=== PATIENT | female | born 1955 | race Caucasian/White ===

== ENCOUNTER 2022-07-21 10:39 | Outpatient (CLI) | payer MEDICARE, OTHER ==
[2022-07-25] MEDS ORDERED: CHOL200012 PO (10:08)
[2022-07-25] MEDS ORDERED: ASPI-611 PO (10:08)
[2022-07-25] MEDS ORDERED: ZINC (10:08)
[2022-07-25] MEDS ORDERED: VITA400T10 PO (10:08)
[2022-07-25] MEDS ORDERED: [UNRECOGNIZED DRUG - OTHER] (10:08)
[2022-07-25] MEDS ORDERED: BIOT25008 PO (10:08)
[2022-07-25] MEDS ORDERED: DEXL60CA3 PO (10:08)
[2022-07-25] MEDS ORDERED: MULT-1219 PO (10:08)
[2022-07-25] MEDS ORDERED: ROSU10TA28 (10:08)
[2022-07-25] MEDS ORDERED: BACL10TA PO (10:08)
[2022-07-25] MEDS ORDERED: MEGA RED (10:08)
[2022-07-25] MEDS ORDERED: LEVO100T9 (10:08)
[2022-07-25] MEDS ORDERED: SEMA2PEN SQ (10:08)
[2022-07-25] MEDS ORDERED: LACT1CAP65 PO (10:08)
== END 2022-07-21 23:59 | disposition home or self-care (01) ==
LOC: RAD 10:39
PROVIDERS: ATTEND Surgery
DX: Z01.818 Encounter for other preprocedural examination (principal); K21.9 Gastro-esophageal reflux disease without esophagitis; K44.9 Diaphragmatic hernia without obstruction or gangrene
CPT/HCPCS: 74220

== ENCOUNTER 2022-08-02 05:27 | Observation (INO) | payer MEDICARE, OTHER ==
[2022-07-25 10:14] LABS: BASOPHILS % (AUTO) 0.7 % (0-1); EOSINOPHILS # (AUTO) 0.1 X10'3 (0-0.9); EOSINOPHILS % (AUTO) 2.1 % (0-6); LYMPHOCYTES # (AUTO) 1.6 X10'3 (1.1-4.8); LYMPHOCYTES % (AUTO) 31.7 % (21-51); MEAN CORPUSCULAR HEMOGLOBIN 29.8 PG (27.0-31.0); MEAN CORPUSCULAR HGB CONC 34.1 g/dL (33.0-36.5); MEAN CORPUSCULAR VOLUME 87.5 FL (78-98); MEAN PLATELET VOLUME 7.1 FL (7.4-10.4); MONOCYTES # (AUTO) 0.5 X10'3 (0-0.9); NEUTROPHILS # (AUTO) 2.9 X10'3 (1.8-7.7); NEUTROPHILS % (AUTO) 56.5 % (42-75); PRE OP HEMATOCRIT 42.7 % (35.0-45.0); PRE OP HEMOGLOBIN 14.5 g/dL (12.0-16.0); PRE OP PLATELET COUNT 221 X10'3 (140-440); RED BLOOD COUNT 4.87 X10'6 (4.20-5.60); RED CELL DISTRIBUTION WIDTH 13.4 % (11.5-14.5)
[2022-07-25 10:40] LABS: ALBUMIN 3.7 G/DL (3.4-5.0); BLOOD UREA NITROGEN 17 MG/DL (7-18); BUN/CREATININE RATIO 27.9 (10.0-20.0); CALCIUM 8.4 MG/DL (8.5-10.1); CHLORIDE 107 MMOL/L (99-107); CREATININE 0.61 MG/DL (0.40-0.90); PRE OP ANION GAP 9 (8-16); PRE OP BILIRUB, TOTAL 0.6 MG/DL (0.0-1.0); PRE OP GLUCOSE 95 MG/DL (70-104); PRE OP POTASSIUM 3.8 MMOL/L (3.4-5.1); PRE OP SODIUM 142 MMOL/L (135-145); TOTAL CARBON DIOXIDE 26.5 MMOL/L (24-32); TOTAL PROTEIN 6.9 G/DL (6.4-8.2); eGFR > 90 ML/MIN
[2022-07-25 10:41] LABS: ALBUMIN/GLOBULIN RATIO 1.2 (1.1-1.5); ALKALINE PHOSPHATASE 63 IU/L (46-116); PRE OP ALT 32 U/L (30-65); PRE OP AST 32 U/L (10-37)
[~2022-08-02] VITALS: Ht 167.6 cm; Wt 73.5 kg
[2022-08-02] VITALS (38 sets, daily range): BP systolic 91–131; BP diastolic 54–84
[~2022-08-02 05:27] MED LIST: ASPI-611 PO; BACL10TA PO; BIOT25008 PO; CHOL200012 PO; DEXL60CA3 PO; LACT1CAP65 PO; LEVO100T9; MEGA RED; MULT-1219 PO; ROSU10TA28; SEMA2PEN SQ; VITA400T10 PO; ZINC; [UNRECOGNIZED DRUG - OTHER]; ringers solution, lacted 1,000 ML IV SCH
[2022-08-02] MEDS ORDERED: famotidine 20mg tablet PO ONE (05:30)
[2022-08-02] MEDS ORDERED: cefazolin 2gm/D5W 100mL 100 ML IV ONE (05:30)
[2022-08-02] MEDS ORDERED: LIDOcaine 1% 30ml preserv. free vial ONE (06:46)
[2022-08-02] MEDS ORDERED: BUPIVAcaine/PF 2.5 mg/ml (0.25%) 30ml vial ONE (06:46)
[2022-08-02] MEDS ORDERED: fentaNYL/PF 50MCG/1 ML 2ML syringe ONE ×2 (07:23→08:18)
[2022-08-02] MEDS ORDERED: midazolam 1 mg/ML 2ml injection ONE (07:24)
[2022-08-02] MEDS ORDERED: rocuronium 10mg/ml inj IV ONE (07:25)
[2022-08-02] MEDS ORDERED: propofol inj 20 ML IV ONE (07:25)
[2022-08-02] MEDS ORDERED: morphine 2 MG/ML inj. syringe IV PRN (07:30)
[2022-08-02] MEDS ORDERED: ringers solution, lacted 1,000 ML IV SCH (07:30)
[2022-08-02] MEDS ORDERED: HYDROmorphone/PF 0.2 MG/ML SYRINGE IV PRN (07:30)
[2022-08-02] MEDS ORDERED: ondansetron/PF 4mg/2ml inj IV PRN ×2 (07:30→09:25)
[2022-08-02] MEDS ORDERED: LIDOcaine 1% 30ml preserv. free vial IJ ONE (07:55)
[2022-08-02] MEDS ORDERED: BUPIVAcaine/PF 2.5mg/ml (0.25%) 10ml vial IJ ONE (07:56)
[2022-08-02] MEDS ORDERED: acetaminophen 1,000mg/100ml IV 100 ML IV ONE (08:06)
[2022-08-02] MEDS ORDERED: ondansetron/PF 4mg/2ml inj ONE (08:06)
[2022-08-02] MEDS ORDERED: dexamethasone sod phosphate 4mg/ml inj. ONE (08:06)
[2022-08-02] MEDS ORDERED: LIDOcaine 2% (20mg/ml) 5ml vial ONE (08:06)
[2022-08-02] MEDS ORDERED: naloxone 0.4 mg/ml inj IV PRN (09:25)
[2022-08-02] MEDS ORDERED: HYDROmorphone inj. 0.5 MG/0.5 ML DISP.SYRIN IV PRN (09:25)
--- NOTE | 2022-08-02 09:27 | NUR ---
Received from OR via [facility], accompanied by Anesthesiologist DR. CERON and report given by Anesthesiolgist. LEFT FOREARM 20G PIV WITH LR RUNNING ORDERED. VSS. NORMOTHERMIC. DENIES PAIN. AKHTAR. RASPY VOICE POST ESOPHAGEAL SCOPING. MASK 7L.
[2022-08-02] MEDS ORDERED: baclofen 10mg tablet PO PRN (09:30)
[2022-08-02] MEDS: morphine 4 MG/ML inj SYRINge IV PRN ×2 (10:55→11:04)
[2022-08-02] MEDS: HYDROmorphone/PF 0.2 MG/ML SYRINGE IV PRN ×2 (11:13→11:32)
[2022-08-02] MEDS: oxyCODONE/APAP 5-325mg tablet PO PRN ×2 (13:44→17:50)
--- NOTE | 2022-08-02 14:00 | NUR ---
PATIENT TRANSFERRED TO PAS UNIT TO AWAIT A ROOM ON SURGICAL FLOOR. REPORT GIVEN TO DECLAN SUGGS SENT WITH PATIENT ALONG WITH CHART.
--- NOTE | 2022-08-02 14:15 | NUR ---
ASSUMED CARE OF PT. PT A/O X 4, DENIES PAIN. STATES SHE FEELS TIRED. VSS, SEE PACU VS. Addendum: 08/02/22 at 1423 by Daniela Ramsey RN Amended: Links added.
--- NOTE | 2022-08-02 16:36 | NUR ---
PT UNABLE TO VOID AFTER 2 ATTEMPTS. BLADDER SCAN WAS PERFORMED AND RESULTED IN 407ML IN BLADDER. DR CUENCA INFORMED AND ORDER RECEIVED TO PLACE NIX CATH OVER NIGHT AND TO D/C IN AM. 16F NIX CATH PLACED USING STERILE PRECAUTIONS. PT TOLERATED WELL AND 500 ML DRAINED INTO BAG. PT WAS THEN TRANSFERRED TO [address] ON SURGICAL FLOOR AND REPORT GIVEN TO MAXIM PETERSON. RN PRESENT AT BEDSIDE. ALL QUESTIONS ANSWERED. BLL, RAIL UP X2. AT BEDSIDE.
--- NOTE | 2022-08-02 18:10 | NUR ---
Patient in room [facility]. I have received report from NICHOLAS Beasley and had the opportunity to ask questions and assume patient care.
--- NOTE | 2022-08-02 18:34 | NUR ---
Report to Brittani PETERSON
[2022-08-02] MEDS: heparin, porcine 5000 units/ml vial SQ SCH (19:58)
[2022-08-03 02:00] VITALS: BP 94/64
[2022-08-03] MEDS: oxyCODONE/APAP 5-325mg tablet PO PRN ×3 (02:19→13:04)
--- NOTE | 2022-08-03 05:53 | NUR ---
FC discontinued at 0545. tolerated procedure well. panties and pads given with education to notify nurses.
[2022-08-03 06:00] VITALS: BP 95/60
[2022-08-03 06:09] LABS: ALBUMIN 3.2 G/DL (3.4-5.0); ANION GAP 7 (8-16); BLOOD UREA NITROGEN 12 MG/DL (7-18); BUN/CREATININE RATIO 17.1 (10.0-20.0); CALCIUM 8.6 MG/DL (8.5-10.1); CHLORIDE 107 MMOL/L (99-107); GLUCOSE 98 MG/DL (70-104); POTASSIUM 4.2 MMOL/L (3.5-5.1); SODIUM 140 MMOL/L (135-145); TOTAL CARBON DIOXIDE 26.5 MMOL/L (24-32); eGFR 83 ML/MIN
--- NOTE | 2022-08-03 06:32 | NUR ---
Problems reprioritized. Patient report given, questions answered & plan of care reviewed with NICHOLAS Herring.
[2022-08-03] MEDS: heparin, porcine 5000 units/ml vial SQ SCH (07:26)
[2022-08-03] MEDS ORDERED: aspirin 81mg, enteric-coated 1 TAB TABLET.DR PO SCH (08:00)
[2022-08-03] MEDS ORDERED: levoTHYROXINE 75mcg tablet PO SCH (08:00)
[2022-08-03] MEDS ORDERED: atorvastatin 20mg tablet PO SCH (08:00)
[2022-08-03 10:00] VITALS: BP 94/62
--- NOTE | 2022-08-03 10:09 | NUR ---
Called k 12 principal. He will see pt. shortly to educate on [place] diet.
--- NOTE | 2022-08-03 10:09 | NUR ---
Surgeon called. He plans to discharge this pt. Pt. up ambulating, pain controlled. She has voided since f/c removal.
--- NOTE | 2022-08-03 11:20 | NUR ---
Nutrition Consult: Pt s/p [place] fundoplication surgeon requests post-[place] diet ed. Pt seen by ASHLY for written/verbal post-[place] diet ed w/ RD contact information and [employer] coupons provided. ASHLY encouraged pt to contact dietitian's office if further nutrition questions/concerns. Addendum: 08/03/22 at [address] Amended: Links added.
[2022-08-03] MEDS ORDERED: PER5325T PO (13:57)
--- NOTE | 2022-08-03 16:45 | NUR ---
Patient's preferred pharmacy unable to fill all 30 tabs of ordered pain pill for discharge. Pharmacy states they will have more of this pill in 4 days and are requesting surgeon to order the remaining 10 tabs on Monday. Called Saurav's office. MA states she will order them Monday.
--- NOTE | 2022-08-03 16:47 | NUR ---
DISCHARGE NOTE: Reviewed discharge paperwork with pt. She is aware she can shower, weight restrictions, discussed possible ASE of pain medication. Discussed incisional care and s/sx infection. Pt. aware to f/u with her PCP and Saurav within a week and that she need to call his office to make an sukhdeep. Contact info provided. Pain pills called in by surgeon to preferred pharmacy. PIV removed by resource RN, belongings gathered and pt. escorted in a w/c to downstairs to go home.
== END 2022-08-03 16:44 | disposition home or self-care (01) ==
LOC: PAS 05:27 → SUR 3N 09:28 → UNDOADMIN 16:56 → SUR 3N 16:56
PROVIDERS: ADMIT Surgery; ATTEND Surgery
DX: K44.9 Diaphragmatic hernia without obstruction or gangrene (principal)
CPT/HCPCS: 36415; 43282; 71045; 80048; 80053; 82948; 85025; 86885; 86900; 86901; 93005; 96372; 96374; 96375; C1781; G0378; J0131; J0690; J1100; J1170; J1644; J2250; J2270; J2405; J2704; J3010; J3490; J7120; A4618

== ENCOUNTER 2022-08-08 14:14 | Emergency (ER) | payer MEDICARE, OTHER ==
[~2022-08-08] VITALS: Ht 165.1 cm; Wt 73.5 kg
[~2022-08-08 14:14] MED LIST changes: -DEXL60CA3 PO; +PER5325T PO; -ringers solution, lacted 1,000 ML IV SCH
[2022-08-08 14:26] LABS: BASOPHILS % (AUTO) 0.5 % (0-1); EOSINOPHILS # (AUTO) 0.3 X10'3 (0-0.9); EOSINOPHILS % (AUTO) 4.7 % (0-6); HEMATOCRIT 45.3 % (35.0-45.0); HEMOGLOBIN 15.4 g/dl (12.0-16.0); LYMPHOCYTES % (AUTO) 30.9 % (21-51); MEAN CORPUSCULAR HEMOGLOBIN 29.8 PG (27.0-31.0); MEAN CORPUSCULAR HGB CONC 34.1 g/dL (33.0-36.5); MEAN CORPUSCULAR VOLUME 87.3 FL (78-98); MEAN PLATELET VOLUME 6.9 FL (7.4-10.4); MONOCYTES # (AUTO) 0.5 X10'3 (0-0.9); MONOCYTES % (AUTO) 8.6 % (2-12); NEUTROPHILS # (AUTO) 3.5 X10'3 (1.8-7.7); NEUTROPHILS % (AUTO) 55.3 % (42-75); PLATELET COUNT 261 X10'3 (140-440); RED BLOOD COUNT 5.18 X10'6 (4.20-5.60); RED CELL DISTRIBUTION WIDTH 13.2 % (11.5-14.5); WHITE BLOOD COUNT 6.4 X10'3 (4.5-11.0)
[2022-08-08 14:43] LABS: ALANINE AMINOTRANSFERASE 27 U/L (12-78); ALBUMIN 3.9 G/DL (3.4-5.0); ALBUMIN/GLOBULIN RATIO 1.1 (1.1-1.5); ALKALINE PHOSPHATASE 70 IU/L (46-116); ANION GAP 10 (8-16); ASPARTATE AMINO TRANSFERASE 26 U/L (10-37); BILIRUBIN,TOTAL 0.8 MG/DL (0.1-1.0); BLOOD UREA NITROGEN 8 MG/DL (7-18); BUN/CREATININE RATIO 9.6 (10.0-20.0); CALCIUM 9.2 MG/DL (8.5-10.1); CHLORIDE 103 MMOL/L (99-107); CREATININE 0.83 MG/DL (0.40-0.90); GLUCOSE 100 MG/DL (70-104); POTASSIUM 3.6 MMOL/L (3.5-5.1); SODIUM 140 MMOL/L (135-145); TOTAL CARBON DIOXIDE 26.7 MMOL/L (24-32); TOTAL PROTEIN 7.5 G/DL (6.4-8.2); eGFR 68 ML/MIN
[2022-08-08 14:51] LABS: MAGNESIUM 1.8 MG/DL (1.5-2.4)
[2022-08-08] MEDS ORDERED: normal saline 1000ML IV soln IVB ONE (16:05)
[2022-08-08 16:19] VITALS: BP 110/73
[2022-08-08] MEDS ORDERED: iohexol 350MG/ML 100ml bottle IV ONE (16:20)
== END 2022-08-08 18:36 | disposition home or self-care (01) ==
LOC: ER 14:15
DX: G47.33 Obstructive sleep apnea (adult) (pediatric) (principal); R07.89 Other chest pain; R06.02 Shortness of breath; Z88.8 Allergy status to other drugs, medicaments and biological substances; Z79.82 Long term (current) use of aspirin; Z79.899 Other long term (current) drug therapy
CPT/HCPCS: 36415; 71045; 71275; 80053; 83735; 83880; 84484; 85025; 93005; 96360; 99285; J3490; J7030; Q9967